=== PATIENT | male | born 1990 | race Caucasian/White ===

== ENCOUNTER 2018-09-08 13:05 | Emergency (ER) | payer OTHER ==
[2018-09-08] MEDS: PERCOCET 5MG/325MG TAB PO (14:53)
== END 2018-09-08 16:58 | disposition home or self-care (01) ==
LOC: M ED 13:05
DX: M51.16 Intervertebral disc disorders with radiculopathy, lumbar region (principal); M06.9 Rheumatoid arthritis, unspecified; Z72.0 Tobacco use
CPT/HCPCS: 72148